=== PATIENT | female | born 1955 | race Caucasian/White ===

== ENCOUNTER 2022-01-12 15:32 | Inpatient (IN) | payer MEDICARE, OTHER ==
[~2022-01-12] VITALS: Ht 162.6 cm; Wt 72.6 kg
[~2022-01-12 15:32] MED LIST: ALBU90OI6 INH; AMOX500 PO; BECL80OI INH; CLON1; DILT240 PO; ESCI20 PO; ESTR1; ESTRACE; ESTROGEN-METHYLTEST PO; FURO20 PO; HYDACE5; HYDACE5 PO; Hair, Skin & N1 EACH PO; IBUP600; IBUP800 PO; K-DUR PO; LEVSOD125 PO; LEVSOD200; LISINOPRIL PO; LORA1 PO; LOVA20 PO; METO50ER PO; NORCO PO; PROACE100; TRAM50; TRAZ50
[2022-01-12 16:26] LABS: BASOPHILS ABSOLUTE AUTO 0.06 K/mm3 (0.00-0.23); BASOPHILS PERCENT AUTO 0 % (0-2); EOSINOPHILS PERCENT AUTO 0 % (0-6); Hemoglobin 18.4 g/dL (11.5-16.0); IMMATURE GRAN ABSOLUTE AUTO 0.28 K/mm3 (0.00-0.10); IMMATURE GRAN PERCENT AUTO 2 % (0-1); LYMPHOCYTES ABSOLUTE AUTO 0.88 K/mm3 (0.84-5.20); LYMPHOCYTES PERCENT AUTO 6 % (21-46); MONOCYTES PERCENT AUTO 9 % (4-13); Mean Corpuscular HGB 32.7 pg (26.0-34.0); Mean Corpuscular HGB Conc 31.3 g/dL (31.5-36.5); Mean Corpuscular Volume 105 fL (80-100); Mean Platelet Volume 10.3 fL (9.1-12.4); NEUTROPHILS ABSOLUTE AUTO 13.42 K/mm3 (1.96-9.15); NEUTROPHILS PERCENT AUTO 84 % (41-73); NRBC Auto 14.3 /100 WBC (0.0-0.2); Platelet Count 230 K/mm3 (150-400); RDW Coefficient Variation 17.2 % (11.7-14.2); RDW Standard Deviation 58.6 fL (35.1-46.3); Red Blood Cell Count 5.62 M/mm3 (3.80-5.20); White Blood Cell Count 16.04 K/mm3 (4.00-11.30)
[2022-01-12 16:31] LABS: Hematocrit 58.8 % (33.0-51.0)
[2022-01-12 16:34] LABS: Base Excess Venous -5.9 mmol/L; Bicarbonate Venous 18.2 mmol/L (24.0-30.0); PCO2 Venous 68.5 mmHg (38-42); pH Blood Venous 7.14 (7.34-7.37)
[2022-01-12 16:49] LABS: Thyroid Stimulating Hormone 2.07 uIU/mL (0.360-4.800)
[2022-01-12 17:07] LABS: Albumin, Blood 3.3 g/dL (3.4-5.0); Bun/Creatinine Ratio 24.1 (12.0-20.0); Calcium, Blood 8.9 mg/dL (8.5-10.1); Creatinine, Blood 3.23 mg/dL (0.40-1.00); Globulin, Blood 3.3 g/dL (2.2-4.0); Potassium, Blood 6.5 mmol/L (3.5-5.5); Total Protein, Blood 6.6 g/dL (6.4-8.2)
[2022-01-12 17:20] LABS: Influenza A, PCR NEGATIVE (NEGATIVE); Influenza B, PCR NEGATIVE (NEGATIVE); Resp Syncytial Virus, PCR NEGATIVE (NEGATIVE); SARS-Cov-2 (COVID-19) PCR, MMC NEGATIVE (NEGATIVE)
[2022-01-12 17:39] LABS: Source, Urine Voided
[2022-01-12 17:50] LABS: Appearance, Urine Cloudy (Clear); Blood, Urine Neg (Neg); Color, Urine Yellow (P-Yellow); Glucose Qualitative, Urine Neg (Neg); Ketones, Urine 1+ (Neg); Leukocyte Esterase, Urine 2+ (Neg); Nitrite, Urine Neg (Neg); Protein, Urine 3+ (Neg); Specific Gravity, Urine 1.025 (1.003-1.022); Urobilinogen, Urine 2+ (Normal)
[2022-01-12 17:56] LABS: Bilirubin, Urine 1+ (Neg)
[2022-01-12 17:57] LABS: Bacteria Many /hpf; Hyaline Casts 0-2 /lpf (0-2); Mucus Light (0-Heavy); Squamous Epithelial Cells Mod /hpf (Few); Transitional Epithelial Cells Rare /hpf (0-Rare); White Blood Cells, Urine 25-50 /hpf (0-5)
[2022-01-12 20:08] LABS: Creatine Kinase MB 8.2 ng/mL (0.0-3.6); Creatine Kinase MB Index 3.4 (0.0-4.0)
--- NOTE | 2022-01-12 21:00 | NUR ---
PT ADMITTED TO ICU FOR SEPSIS UPON ADMIT PT HYPOTENSIVE MAPS BELOW 65. 500 ML BOLUS GIVEN. NOREPI STARTED AT 2 MCG/HR. STRUGGLING TO KEEP MAPS GREATER THAN 65. NOREPI GTT NOW AT 10 MCGS/HR. MANNUAL BP DONE X2 ON R ARM AND CONSITENT WITH NON INVASIVE AUTOMATIC BPS.
[2022-01-13 00:17] LABS: Bun/Creatinine Ratio 24.4 (12.0-20.0); Calcium, Blood 7.8 mg/dL (8.5-10.1); Creatinine, Blood 3.15 mg/dL (0.40-1.00); Potassium, Blood 5.8 mmol/L (3.5-5.5)
[2022-01-13 00:52] LABS: Creatine Kinase MB 11.1 ng/mL (0.0-3.6); Creatine Kinase MB Index 3.6 (0.0-4.0)
[2022-01-13 05:01] LABS: BASOPHILS ABSOLUTE AUTO 0.12 K/mm3 (0.00-0.23); BASOPHILS PERCENT AUTO 1 % (0-2); EOSINOPHILS ABSOLUTE AUTO 0.01 K/mm3 (0.00-0.68); EOSINOPHILS PERCENT AUTO 0 % (0-6); Hemoglobin 17.6 g/dL (11.5-16.0); IMMATURE GRAN ABSOLUTE AUTO 0.82 K/mm3 (0.00-0.10); IMMATURE GRAN PERCENT AUTO 4 % (0-1); LYMPHOCYTES ABSOLUTE AUTO 0.67 K/mm3 (0.84-5.20); LYMPHOCYTES PERCENT AUTO 3 % (21-46); MONOCYTES ABSOLUTE AUTO 1.64 K/mm3 (0.16-1.47); MONOCYTES PERCENT AUTO 8 % (4-13); Mean Corpuscular HGB Conc 30.6 g/dL (31.5-36.5); Mean Corpuscular Volume 105 fL (80-100); Mean Platelet Volume 10.6 fL (9.1-12.4); NEUTROPHILS ABSOLUTE AUTO 17.13 K/mm3 (1.96-9.15); NEUTROPHILS PERCENT AUTO 84 % (41-73); NRBC ABSOLUTE 2.98 K/mm3 (0.00-0.02); NRBC Auto 14.6 /100 WBC (0.0-0.2); Platelet Count 207 K/mm3 (150-400); RDW Coefficient Variation 17.3 % (11.7-14.2); RDW Standard Deviation 59.7 fL (35.1-46.3); White Blood Cell Count 20.39 K/mm3 (4.00-11.30)
[2022-01-13 05:14] LABS: Hematocrit 57.6 % (33.0-51.0)
--- NOTE | 2022-01-13 05:26 | NUR ---
PT ADMITED LAST NIGHT. BPS BEING MANGED WITH NOREPI AND FLUIDS. MAP GOAL >65. NOREPI REQUIRING ALOT OF TITRATIONS. PT IN VENT BIGEM THOUGHOUT THE NIGHT, MD AWARE. PT DENIES CP. OTHER VITALS STABLE. CENTRAL LINE PLACED LAST NIGHT BY HOSPITALIST. PT ON OXIMIZER AT 15L DUE TO INTERMITTENT APNEA, PT WITH HX OF BEN. MD STATED AT ADMIT TO GET PRESSURES UNDER CONTROL BEFORE STARTING HER ON BIPAP. WHEN AWAKE PT ON 10L VIA OXIMIZER. PT HAS NOT VOIDED YET THIS SHIFT, WILL BLADDER SCAN HER THIS AM. PT COMFORTABLE IN BED, TURNING PT Q2 HRS. NO SKIN ISSUES.
[2022-01-13 05:52] LABS: Albumin, Blood 2.9 g/dL (3.4-5.0); Bilirubin, Total 0.6 mg/dL (0.1-1.0); Bun/Creatinine Ratio 25.7 (12.0-20.0); Calcium, Blood 8.1 mg/dL (8.5-10.1); Creatinine, Blood 3.15 mg/dL (0.40-1.00); Globulin, Blood 2.9 g/dL (2.2-4.0); Total Protein, Blood 5.8 g/dL (6.4-8.2)
[2022-01-13 06:54] LABS: Source, Urine Foley catheter
[2022-01-13 07:09] LABS: Bilirubin, Urine Neg (Neg); Blood, Urine 2+ (Neg); Glucose Qualitative, Urine Neg (Neg); Ketones, Urine 1+ (Neg); Leukocyte Esterase, Urine 2+ (Neg); Nitrite, Urine Neg (Neg); Protein, Urine 3+ (Neg); Urobilinogen, Urine NORM (Normal)
[2022-01-13 07:17] LABS: Appearance, Urine Hazy (Clear); Bacteria Few /hpf; Color, Urine Yellow (P-Yellow); Squamous Epithelial Cells Mod /hpf (Few)
[2022-01-13 07:18] LABS: Transitional Epithelial Cells Few /hpf (0-Rare)
--- NOTE | 2022-01-13 08:00 | NUR ---
Received report from Rubina RN. Patient is awake in bed and is able to answer simple questions. She has been sleeping off and on and has apnea. She knows where she is and year, but poor historian. She os on 15L o2 via oximiser and sats >90%. She has 22ga IV in LH and is flushed and SL. She also has RIJ infusing NS at 150 ml/hr and Levophed at 10 mcg/min for systolics low 100's currently. She has lebron in place draining urine to gravity. Will call famil to find out what her baseline is.
[2022-01-13 08:54] LABS: Creatine Kinase MB 12.2 ng/mL (0.0-3.6); Creatine Kinase MB Index 2.2 (0.0-4.0)
[2022-01-13 09:19] LABS: PO2 Arterial 78.6 mmHg (80-100)
[2022-01-13 09:20] LABS: PCO2 Arterial 75.1 mmHg (35-45); pH Blood Arterial 7.15 (7.35-7.45)
--- NOTE | 2022-01-13 09:40 | NUR ---
Patient placed on BIPAP for low ABG 3's and settings of 12/6 at 50% and sats >90%. Talked with friend destiny and recieved info that was passed on to Dr Page. Dr Page has been in room and awaiting new orders. vascular US in room now.
--- NOTE | 2022-01-13 10:00 | NUR ---
Patient placed on BIPAP for low ABG #'s and settings of 12/6 at 50% and sats >90%. Talked with friend destiny and recieved info that was passed on to Dr Page. Dr Page has been in room and awaiting new orders. Vascular US in room now.
[2022-01-13 10:44] LABS: Magnesium, Blood 2.4 mg/dL (1.6-2.4); Phosphorus, Blood 7.8 mg/dL (2.5-4.9)
--- NOTE | 2022-01-13 11:30 | NUR ---
Echo and renal US done and No new orders. Gave daughter update and received more info that was passed to Dr Page. Patient resting on BIPAP no setting changes. She tolerated PO meds without difficulty. No changes to neuro, remains cooperative with care. Levophed remains at 10 mcg/min for systolics low 100's.
--- NOTE | 2022-01-13 13:30 | NUR ---
Echocardiogram using 0.90ml of Definity contrast performed.
[2022-01-13 14:27] LABS: PCO2 Arterial 72.5 mmHg (35-45); PO2 Arterial 60.9 mmHg (80-100); pH Blood Arterial 7.18 (7.35-7.45)
--- NOTE | 2022-01-13 15:12 | NUR ---
Patient remains on BIPAP and gave break to oximizer and called RT and he came and did ABG and polaced back on BIPAP and wrote new orders. She is to remaisn on BIPAP. VSS and Levophed remains at 10 with systolics low 100's. fluids Dc'd and changed to TKO. resting quietly.
--- NOTE | 2022-01-13 18:34 | NUR ---
Patient has been resting on BIPAP 02/24 50% and sat s>90%. She is c/o about generalized pain and have call into Dr Christian for medication. She is very painful with movement. She has RIJ infusing NS TKO and levophed at 7 mcg/min and was reduced from 10 r/t 150's systolic. urine output was 650 ml yellow urine and 1671 ml in IV. Chlorhexidine bath done, and reposition and boosted.
--- NOTE | 2022-01-13 19:49 | NUR ---
ASSUMPTION OF CARE PT IS ALERT, ABLE TO MAKE NEEDS KNOWN. ORIENTED TO SELF AND PLACE. SHE IS ON CONTINUOUS BIPAP AT THIS TIME, NPO. SHE IS NSR ON THE MONITOR AND BP IS WNL. SHE IS ON A LEVOPHED GTT, TITRATING TO MAINTAIN MAP >65. OXYGEN SAT IS 97%. PT LOWER EXT ARE GRIFFIN W/SOME TOES BEING CYANOTIC. CAP REFILL IS <3 SECONDS DESPITE THIS HOWEVER AND LE ARE WARM BILATERALLY. PT WAS EDUCATED ON NPO STATUS AND IS PERTAINTS TO HER RESPIRATORY CONDITION. THIS WILL NEED TO BE REINFORCED NEEDED PT SEEMS TO HAVE SOME COGNITIVE DEFICITS. CARRASCO CATH INTACT PATENT AND DRAINING YELLOW URINE. NO ACUTE S/S OF DISTRESS NOTED AT TIME OF ASSUMPTION OF CARE.
[2022-01-14 04:09] LABS: Hematocrit 48.7 % (33.0-51.0); Hemoglobin 15.7 g/dL (11.5-16.0); Mean Corpuscular HGB Conc 32.2 g/dL (31.5-36.5); Mean Platelet Volume 10.8 fL (9.1-12.4); NRBC ABSOLUTE 0.17 K/mm3 (0.00-0.02); NRBC Auto 1.8 /100 WBC (0.0-0.2); Platelet Count 139 K/mm3 (150-400); RDW Coefficient Variation 16.7 % (11.7-14.2); RDW Standard Deviation 54.8 fL (35.1-46.3); White Blood Cell Count 9.42 K/mm3 (4.00-11.30)
[2022-01-14 04:14] LABS: Mean Corpuscular Volume 99 fL (80-100)
[2022-01-14 04:38] LABS: Magnesium, Blood 2.1 mg/dL (1.6-2.4); Thyroid Stimulating Hormone 0.377 uIU/mL (0.360-4.800)
[2022-01-14 04:45] LABS: Albumin, Blood 2.4 g/dL (3.4-5.0); Albumin/Globulin Ratio 0.9 (0.8-1.8); Bilirubin, Total 0.5 mg/dL (0.1-1.0); Bun/Creatinine Ratio 29.4 (12.0-20.0); Creatinine, Blood 2.69 mg/dL (0.40-1.00); Globulin, Blood 2.7 g/dL (2.2-4.0); Phosphorus, Blood 4.9 mg/dL (2.5-4.9); Total Protein, Blood 5.1 g/dL (6.4-8.2)
[2022-01-14 05:29] LABS: BAND PERCENT MAN 4 % (0-8); BASOPHILS PERCENT MAN 0 % (0-2); EOSINOPHILS PERCENT MAN 0 % (0-6); LYMPHOCYTES ABSOLUTE MAN 0.18 K/mm3 (0.84-5.20); LYMPHOCYTES PERCENT MAN 2 % (21-46); MONOCYTES ABSOLUTE MAN 0.28 K/mm3 (0.16-1.47); MONOCYTES PERCENT MAN 3 % (4-13); NEUTROPHILS ABSOLUTE MAN 8.94 K/mm3 (1.96-9.15); SEG NEUTROPHILS PERCENT MAN 91 % (41-73); TOTAL CELLS COUNTED 100
[2022-01-14 05:34] LABS: PCO2 Arterial 50.7 mmHg (35-45); PO2 Arterial 75.1 mmHg (80-100); pH Blood Arterial 7.35 (7.35-7.45)
--- NOTE | 2022-01-14 05:53 | NUR ---
SHIFT SUMMERY PT HAS BEEN COMPLIANT W/BIPAP THROUGHOUT THE NIGHT. OXYGEN SAT >95%. PT IS ALERT AND ORIENTED TO PERSON WITH CONFUSION AT TIMES. SHE IS ON LEVOPHED TO KEEP MAP>65. SHE HAS HAD NO ACUTE EVENTS OVERNIGHT.
--- NOTE | 2022-01-14 09:42 | NUR ---
0800 ASSUMED CARE OF PATIENT PATIENT WAS RESTING ON BIPAP BUT EASILY AWAKENS. PATIENT FREQ. ASKING FOR JUICE OR WATER. RESP THERAPY GIVING BREATHING TREATMENT AND CHANGED HER OVER TO HIGH FLOW NASAL CANULA 13 L HUMIDIFIED FROM THE BIPAP. HER OXYGENATION STAYING ABOUT 95% ON THE NEW SETTINGS. SHE WAS GIVEN PO LUQUID THIS AM WITH MEDICATION AND ORAL CARE. SHE SWALLOWED WITHOUT DIFFICULTY. SHE HAS BEEN TALKING FREQUENTLY STATING THE LAST FEW WEEKS WITH HER DAUGHTER IN [place] AND THE WORK UPS SHE HAD GOTTEN DOWN THERE. SHE WAS GIVEN A CHLORHEXIDINE BATH AND CARRASCO CARE DONE TOO. ALL SHEETS AND GOWN WERE CHANGED THIS AM. FACE WAS ALSO WASHED. ORAL CARE COMPLETED. PATIENT CENTRAL LINE RIGHT IJ IN PLACE CAPS CHANGED. DRESSING TO BE CHANGED TODAY. PATIENT WAS REMINDED TO LEAVE OXYGEN IN PLACE AND NOT TO SCRATCH AT DRESSING AT NECK. LUNGS ARE CLEAR AND DIMINISHED WHEN ASCULTATED. ABD SOFT DISTENDED AND POSITIVE BOWELTONES PRESENT. SKIN IS VERY SENSITIVE TO TOUCH AND IS BRUISED THROUGHOUT BODY. PATIENT STATES SHE DOESN'T KNOW WHERE THEY ALL CAME FROM. WILL CONTINUE CARE AND TREAT DIRECTED.
--- NOTE | 2022-01-14 10:42 | NUR ---
Pt, is sitting up in bed eating breakfast when she welcomes my visit. Pt. is unsettled about whether her daughter is aware that she is ok. Pt. was comfortable sharing alot of information about ramona and family. Listen empathetically with a calming presence. Pt. displays evidence of energy and trust. Pastoral associate professor of counseling and normalizing the Pt. expereince is given. Prayed with Pt. Pt. verbalized gratitude for the spiritual care visit, and requested her daughter be contacted and updated about her condition. Conferred with ICU nurse.
--- NOTE | 2022-01-14 14:21 | NUR ---
noon update Kristen has been able to eat her meals now and drink water. She is eager to drink V8 juice as well. she is still putting out good amount of urine into her lebron. she has spoke with dr ytson and dr villagomez today. dr sanchez was consulted to cover nephrology. Patients central line was dc'd and a powerglide by kamran del valle rn was placed to right upper arm. the powerglide is tko. Kristen has been on and off the phone with family and friends today. vs are stable and levophed has been off since 0800 this am. She is now PCU status. Will continue to manage as directed.
--- NOTE | 2022-01-14 18:07 | NUR ---
1800 END OF SHIFT REPORT. ALEXANDRA HAD A GOOD DAY. SHE WAS ABLE TO GET OFF THE BIPAP THIS AM AND PUT ON HIGH FLOW NASAL CANULA, WHICH IS NOW AT 8L HUMIDIFIED. SHE IS OXYGENATING WELL WITH EXP WHEEZES ONLY POST BREATHING TREATMENT TONIGHT. SHE HAS CONTINUED TO HAVE GOOD OUTPUT FROM CARRASCO CATHETER WITH THE LASIX IV GIVEN. SHE GOT HER CENTERAL LINE DC'D AND A POWERGLIDE PLACED TO RIGHT UPPER ARM THAT IS SALINE LOCKED. SHE REMAINS NORMOTENSIVE OFF THE PRESSURES SINCE 0800 THIS AM. SHE HAS BE[place] [facility] SBA AND WALKER. SHE DID NOT HAVE A BM BUT DID GET HER HAIR WASHED AND BRUSHED AND BRAIDED WHILE UP. SHE HAS SPOKE WITH THREE DR'S TODAY AND A FRIEND "GLADYS" AND HER DAUGHTER. PATIENT ENJOYING HER SECOND DINNER AND HER V8 JUICE WHICH SHE INSIST ON HAVING. WILL GIVE REPORT TO NEXT SHIFT TO RESUME CARE.
[2022-01-15 04:32] LABS: Hematocrit 46.5 % (33.0-51.0); Hemoglobin 15.3 g/dL (11.5-16.0); Mean Corpuscular HGB 32.6 pg (26.0-34.0); Mean Corpuscular HGB Conc 32.9 g/dL (31.5-36.5); Mean Corpuscular Volume 99 fL (80-100); Mean Platelet Volume 10.6 fL (9.1-12.4); NRBC ABSOLUTE 0.08 K/mm3 (0.00-0.02); NRBC Auto 0.6 /100 WBC (0.0-0.2); Platelet Count 153 K/mm3 (150-400); RDW Coefficient Variation 17.1 % (11.7-14.2); RDW Standard Deviation 56.3 fL (35.1-46.3); Red Blood Cell Count 4.69 M/mm3 (3.80-5.20); White Blood Cell Count 14.04 K/mm3 (4.00-11.30)
--- NOTE | 2022-01-15 05:30 | NUR ---
SHIFT SUMMERY NO ACUTE EVENTS OVERNIGHT. VS STABLE W/NO COMPLAINTS OF PAIN.
[2022-01-15 05:36] LABS: Albumin, Blood 2.6 g/dL (3.4-5.0); Bilirubin, Total 0.4 mg/dL (0.1-1.0); Bun/Creatinine Ratio 34.5 (12.0-20.0); Calcium, Blood 8.4 mg/dL (8.5-10.1); Creatinine, Blood 2.35 mg/dL (0.40-1.00); Globulin, Blood 2.6 g/dL (2.2-4.0); Phosphorus, Blood 3.4 mg/dL (2.5-4.9); Potassium, Blood 4.2 mmol/L (3.5-5.5); Total Protein, Blood 5.2 g/dL (6.4-8.2)
--- NOTE | 2022-01-15 09:10 | NUR ---
CARE OF PT ASSUMED AT 0700. PT SLEEPING W HIGH FLOW N/C AT 6L. SLEEP APNEA NOTED W SATS LOW 60%. SATS >90% WHEN AWAKE. PT DENIES SOB WORSE THAN NORMAL. RT UPDATED. LUNGS COARSE T/O W SCATTERED WHEEZES T/O, DIMINISHED TO BASES. PT C/O CHRONIC PAIN TO JOINTS 10/29. NORCO GIVEN.
--- NOTE | 2022-01-15 17:27 | NUR ---
Student consent statement. Patient verbalized that [place] [facility] [place] may participate in her care. 01/15/2022. CT
--- NOTE | 2022-01-16 04:36 | NUR ---
PT SLEEPING INTERMITTENTLY TONIGHT. THIS AM WOKE UP VERY ANXIOUS, ABLE TO CALM PT WITH DISTRACTION AND THERAPUTIC COMMUNICATION. A/O X4 BUT STILL FORGETFUL. VSS. PTS BP SLIGHTLY ELEVATED BUT NOT CHANGED FROM PREVIOUS VITALS TREND. SPO2 WNL ON 5L O2, INTERMITTENT APNEA THROUGHOUT THE NIGHT. PT REFUSING CPAP TONIGHT. PT ABLE TO GET UP OUT OF BED WITH SBA AND FRONT WHEEL WALKER. ASSISTING PT WITH TURNS BUT PT ABLE TO TURN HERSELF JUST NEEDS SOME CUES. CHRONIC PAIN MANAGED WITH PRN MEDS AND REPOSTIONING. NO SIGNIFICANT EVENTS OVERNIGHT PT STABLE.
[2022-01-16 05:59] LABS: Albumin, Blood 2.6 g/dL (3.4-5.0); Anion Gap 3 mmol/L (6-16); Blood Urea Nitrogen 78 mg/dL (8-24); Bun/Creatinine Ratio 38.6 (12.0-20.0); CO2, Blood 36 mmol/L (21-32); Calcium, Blood 8.4 mg/dL (8.5-10.1); Chloride, Blood 100 mmol/L (98-108); Creatinine, Blood 2.02 mg/dL (0.40-1.00); Glomerular Filtration Rate 26 (60-); Glucose, Blood 216 mg/dL (70-99); Phosphorus, Blood 3.1 mg/dL (2.5-4.9); Potassium, Blood 4.2 mmol/L (3.5-5.5); Sodium, Blood 139 mmol/L (136-145)
--- NOTE | 2022-01-16 07:25 | NUR ---
TOOK OVER CARE OF PT AT 0700. PT ON 7L NJ.
[2022-01-16 09:10] LABS: HBSAG SCREEN Negative (Negative); HCV AB <0.1 (0.0-0.9); HEP A AB, IGM Negative (Negative); HEP B CORE AB, IGM Negative (Negative)
--- NOTE | 2022-01-16 16:10 | NUR ---
PT ARRIVED TO MED UNIT ABLE TO SELF TRANSFER. 2L NC-PLAN TO OBTAIN CPAP FOR REPORTED APNEA. PT A&OX4, TALKATIVE.
--- NOTE | 2022-01-17 04:56 | NUR ---
SHIFT SUMMARY; THE PT HAD NO ACUTE MEDICAL CHANGES THROUGHOUT THE NIGHT. PT USED CALL LIGHT APPROPIRATE FOR ASSITANCE AMBULATING TO THE BATHROOM. PT W/ PURPLE BRUISING ON THE R SIDE OF THE ABDOMEN AND BACK OF L OUT CONNIE URBANLEY IN RELATION TO REPEAT INJECTIONS OF HEPARIN IN THOSE LOCATIONS. SMALL AMOUNTS OF BLEEDING FROM THE RLQ OF THE ABDOMEN IN A HEPARIN INJECTION SITE, BANDAID APPLIED. PT CURRENTLY ON CPAP WITH 2L OF O2 MAINTAINING AROUND 92-94% O2. PT ANXIOUS ABOUT USING CPAP LAST NIGHT STATES SHE FEELS LIKE SHE MIGHT BE RESTRICTED, PT REASSURED TO USE HER CALL LIGHT IF SHE NEEDS TO TAKE IT OFF TO GET A DRINK OF WATER OR USE THE BATHROOM. PT CURRENTLY RESTING IN BED WITH THE BED IN THE LOWEST POSITION AND THE CALL LIGHT IN HAND.
[2022-01-17 12:13] LABS: Albumin, Blood 2.9 g/dL (3.4-5.0); Anion Gap 4 mmol/L (6-16); Blood Urea Nitrogen 63 mg/dL (8-24); Bun/Creatinine Ratio 43.2 (12.0-20.0); CO2, Blood 38 mmol/L (21-32); Calcium, Blood 8.6 mg/dL (8.5-10.1); Chloride, Blood 100 mmol/L (98-108); Creatinine, Blood 1.46 mg/dL (0.40-1.00); Glomerular Filtration Rate 39 (60-); Glucose, Blood 152 mg/dL (70-99); Phosphorus, Blood 2.1 mg/dL (2.5-4.9); Potassium, Blood 4.2 mmol/L (3.5-5.5); Sodium, Blood 142 mmol/L (136-145)
--- NOTE | 2022-01-17 17:07 | NUR ---
SHIFT SUMMARY PT IND IN ROOM WHEN NOT HOOKED UP TO IV POLE. SBA WHEN IV IS RUNNING. PT WORKED WITH PHYSICAL THERAPY TODAY AND WAS DISCHARGED BY THEM. TITRATED DOWN TO 3.5-4L O2 VIA NC AND TOLERATING WELL. SLEEP OXIMETRY ORDERED FOR TONIGHT. PT POSSIBLE DISCHARGE TOMORROW OR WEDNESDAY. DAUGHTER IN TO VISIT TODAY AND UP TO DATE ON PLAN OF CARE. PT PLEASANT & COOPERATIVE T/O SHIFT. NO OTHER ACUTE CHANGES IN ASSESSMENT AT THIS TIME. VS REVIEWED. CALL LIGHT IN REACH. DENIES OTHER NEEDS AT THIS TIME
[2022-01-18 05:57] LABS: Hematocrit 44.9 % (33.0-51.0); Hemoglobin 14.3 g/dL (11.5-16.0); Mean Corpuscular HGB 32.6 pg (26.0-34.0); Mean Corpuscular HGB Conc 31.8 g/dL (31.5-36.5); Mean Corpuscular Volume 103 fL (80-100); Mean Platelet Volume 11.1 fL (9.1-12.4); NRBC ABSOLUTE 0.04 K/mm3 (0.00-0.02); NRBC Auto 0.4 /100 WBC (0.0-0.2); Platelet Count 145 K/mm3 (150-400); RDW Coefficient Variation 16.5 % (11.7-14.2); Red Blood Cell Count 4.38 M/mm3 (3.80-5.20); White Blood Cell Count 11.06 K/mm3 (4.00-11.30)
[2022-01-18 06:08] LABS: Albumin, Blood 2.5 g/dL (3.4-5.0); Bilirubin, Total 0.8 mg/dL (0.1-1.0); Bun/Creatinine Ratio 48.6 (12.0-20.0); Creatinine, Blood 1.42 mg/dL (0.40-1.00); Globulin, Blood 2.4 g/dL (2.2-4.0); Potassium, Blood 4.3 mmol/L (3.5-5.5); Total Protein, Blood 4.9 g/dL (6.4-8.2)
--- NOTE | 2022-01-18 06:28 | NUR ---
SHIFT SUMMARY, PT WAS PLEASANT THROUGHOUT THE SHIFT. PT HAD A SLEEP STUDY LAST NIGHT, REMAINED ON 2L NC FOR SLEEP STUDY, SATED 87-91%. SLEEP STUDY CONCLUDED AND PT WAS SATING 87%, O2 TITRATED UP TO 3L, PT CURRENTLY SATING 91%. PT INDEPENDENT IN ROOM BUT DOES CALL TO HAVE BIOX OFF TO USE BEDSIDE COMMODE. NO OTHER CHANGES NOTED THROUGHOUT THE NIGHT. THE PT IS CURRENTLY RESTING IN BED, THE BED IS IN THE LOWEST POSITION AND CALL LIGHT IS AT THE BEDSIDE.
[2022-01-18] MEDS ORDERED: CARTIA XT120 M1 PO (14:23)
[2022-01-18] MEDS ORDERED: ASPI81CH PO (14:24)
[2022-01-18] MEDS ORDERED: FLUTICASONE-SA1 EAC2 INH (14:26)
[2022-01-18] MEDS ORDERED: FURO40 PO (14:28)
[2022-01-18] MEDS ORDERED: IPRAT-ALBUT 0.5-3 ML INH (14:30)
[2022-01-18] MEDS ORDERED: AMOCLA875 PO (14:32)
[2022-01-18] MEDS ORDERED: VISBIOME 112.51 EACH PO (14:32)
--- NOTE | 2022-01-18 15:50 | NUR ---
DISCHARGE PT DISCHARGED AFTER NEW PORTABLE O2 TANK WAS DELIVERED. PT & HER DAUGHTER EDUCATED ON DC INSTRUCTIONS AND NEW MEDS. DENIED FURTHER NEED FOR EXPLAINATION AT TIME OF DC. PG REMOVED AND INTACT. PT WHEELED OUT BY THIS RN. BELONGINGS SENT WITH THE PT. NO CHANGES IN ASSESSMENT PRIOR TO DC.
== END 2022-01-18 15:20 | disposition home health service (06) | DRG 871 ==
LOC: ER 15:32 → MEDS 18:33 → ICUW 18:33 → MEDS 01-16 15:54
PROVIDERS: Emergency Medicine; Internal Medicine; Internal Medicine Critical Care Medicine; Internal Medicine Nephrology; ADMIT Internal Medicine
PROC: 3E03329 Introduction of Other Anti-infective into Peripheral Vein, Percutaneous Approach (ICD-10-PCS; 2022-01-12)
PROC: 3E033XZ Introduction of Vasopressor into Peripheral Vein, Percutaneous Approach (ICD-10-PCS; 2022-01-12)
PROC: 02HV33Z Insertion of Infusion Device into Superior Vena Cava, Percutaneous Approach (ICD-10-PCS; 2022-01-12)
PROC: 5A09357 Assistance with Respiratory Ventilation, Less than 24 Consecutive Hours, Continuous Positive Airway Pressure (ICD-10-PCS; principal; 2022-01-13)
PROC: 5A0935A Assistance with Respiratory Ventilation, Less than 24 Consecutive Hours, High Flow/Velocity Cannula (ICD-10-PCS; 2022-01-14)
DX: A41.9 Sepsis, unspecified organism (principal); G92.8 Other toxic encephalopathy; I50.31 Acute diastolic (congestive) heart failure; J18.9 Pneumonia, unspecified organism; R65.21 Severe sepsis with septic shock; K72.00 Acute and subacute hepatic failure without coma; I21.A1 Myocardial infarction type 2; N17.2 Acute kidney failure with medullary necrosis; J96.21 Acute and chronic respiratory failure with hypoxia; J96.22 Acute and chronic respiratory failure with hypercapnia; E87.1 Hypo-osmolality and hyponatremia; I13.0 Hypertensive heart and chronic kidney disease with heart failure and stage 1 through stage 4 chronic kidney disease, or unspecified chronic kidney disease; J44.0 Chronic obstructive pulmonary disease with (acute) lower respiratory infection; G47.33 Obstructive sleep apnea (adult) (pediatric); R74.01 Elevation of levels of liver transaminase levels; K76.1 Chronic passive congestion of liver; N18.30 Chronic kidney disease, stage 3 unspecified; E87.5 Hyperkalemia; E03.9 Hypothyroidism, unspecified; F41.9 Anxiety disorder, unspecified; I73.89 Other specified peripheral vascular diseases; F17.210 Nicotine dependence, cigarettes, uncomplicated; E86.0 Dehydration; I70.229 Atherosclerosis of native arteries of extremities with rest pain, unspecified extremity; Z20.822 Contact with and (suspected) exposure to COVID-19; B96.89 Other specified bacterial agents as the cause of diseases classified elsewhere; I50.810 Right heart failure, unspecified; R94.5 Abnormal results of liver function studies; E83.39 Other disorders of phosphorus metabolism; Z88.5 Allergy status to narcotic agent; Z91.048 Other nonmedicinal substance allergy status; Z99.81 Dependence on supplemental oxygen; Z79.899 Other long term (current) drug therapy; Z79.811 Long term (current) use of aromatase inhibitors; Z79.01 Long term (current) use of anticoagulants; Z79.51 Long term (current) use of inhaled steroids; Z98.890 Other specified postprocedural states
CPT/HCPCS: 0241U; 36415; 36556; 36600; 51703; 70450; 71045; 74176; 76770; 80048; 80053; 80069; 80074; 81001; 82140; 82330; 82550; 82553; 82570; 82803; 83605; 83735; 83880; 84100; 84145; 84156; 84443; 84484; 85007; 85025; 85027; 87040; 87086; 93005; 93010; 93922; 94640; 94660; 94664; 94760; 94761; 94762; 96365; 96375; 97112; 97116; 97162; 97166; 97530; 97535; 99285-25; A9270; C1751; C8929; J0456; J0610; J1644; J1815; J1940; J2543; J2930; J7030; J7050; J7060; Q9957

== ENCOUNTER → 2022-01-28 | Outpatient (CLI) | payer MEDICARE, OTHER ==
[~2022-01-28] MED LIST changes: +AMOCLA875 PO; +ASPI81CH PO; +CARTIA XT120 M1 PO; +FLUTICASONE-SA1 EAC2 INH; +FURO40 PO; +IPRAT-ALBUT 0.5-3 ML INH; +VISBIOME 112.51 EACH PO
[2022-01-28 19:29] LABS: Bun/Creatinine Ratio 22.3 (12.0-20.0); Creatinine, Blood 1.12 mg/dL (0.40-1.00); Potassium, Blood 3.6 mmol/L (3.5-5.5)
== END | disposition home or self-care (01) ==
LOC: LAB SHORT 17:33 → LAB 17:33
PROVIDERS: Hospitalist
DX: I10 Essential (primary) hypertension (principal)
CPT/HCPCS: 80048

== ENCOUNTER → 2023-02-05 | Outpatient (CLI) | payer MEDICARE, OTHER ==
[2023-02-05 17:34] LABS: Albumin, Blood 3.4 g/dL (3.4-5.0); Bilirubin, Total 0.4 mg/dL (0.1-1.0); Bun/Creatinine Ratio 31.6 (12.0-20.0); Calcium, Blood 8.8 mg/dL (8.5-10.1); Creatinine, Blood 1.14 mg/dL (0.40-1.00); Globulin, Blood 3.3 g/dL (2.2-4.0); Potassium, Blood 4.7 mmol/L (3.5-5.5); Thyroid Stimulating Hormone 1.04 uIU/mL (0.360-4.800); Total Protein, Blood 6.7 g/dL (6.4-8.2)
[2023-02-05 17:35] LABS: BASOPHILS ABSOLUTE AUTO 0.09 K/mm3 (0.00-0.23); BASOPHILS PERCENT AUTO 1 % (0-2); EOSINOPHILS ABSOLUTE AUTO 0.18 K/mm3 (0.00-0.68); EOSINOPHILS PERCENT AUTO 1 % (0-6); Hematocrit 46.2 % (33.0-51.0); Hemoglobin 15.3 g/dL (11.5-16.0); IMMATURE GRAN ABSOLUTE AUTO 0.09 K/mm3 (0.00-0.10); IMMATURE GRAN PERCENT AUTO 1 % (0-1); LYMPHOCYTES ABSOLUTE AUTO 1.94 K/mm3 (0.84-5.20); LYMPHOCYTES PERCENT AUTO 15 % (21-46); MONOCYTES ABSOLUTE AUTO 1.18 K/mm3 (0.16-1.47); MONOCYTES PERCENT AUTO 9 % (4-13); Mean Corpuscular HGB 31.8 pg (26.0-34.0); Mean Corpuscular HGB Conc 33.1 g/dL (31.5-36.5); Mean Corpuscular Volume 96 fL (80-100); Mean Platelet Volume 11.7 fL (9.1-12.4); NEUTROPHILS ABSOLUTE AUTO 9.25 K/mm3 (1.96-9.15); NEUTROPHILS PERCENT AUTO 73 % (41-73); Platelet Count 232 K/mm3 (150-400); RDW Coefficient Variation 13.6 % (11.7-14.2); RDW Standard Deviation 48.9 fL (35.1-46.3); Red Blood Cell Count 4.81 M/mm3 (3.80-5.20); White Blood Cell Count 12.73 K/mm3 (4.00-11.30)
== END ==
LOC: LAB SHORT 16:15 → LAB 16:15
PROVIDERS: Nurse Practitioner Family
DX: I10 Essential (primary) hypertension (principal); E03.9 Hypothyroidism, unspecified; K43.9 Ventral hernia without obstruction or gangrene
CPT/HCPCS: 80053; 84443; 85025